=== PATIENT | female | born 1965 | race African-American/Black ===

== ENCOUNTER 2022-08-13 00:55 | Emergency (ER) | payer OTHER, SELFPAY ==
--- NOTE | ~2022-08-13 | CT_ITS ---
EXAMINATION: CT ABDOMEN AND PELVIS WITHOUT CONTRAST CLINICAL INFORMATION: Abdominal pain. Post gastric sleeve surgery. COMPARISON: None available. TECHNIQUE: Multidetector volumetric imaging was performed from the superior aspect of the liver through the pubic symphysis. Sagittal and coronal reformatted images were obtained on the technologist's workstation. This CT examination was performed using dose optimization techniques as appropriate, variously including the following: *Automated exposure control *Adjustment of mA and/or kV according to patient size (this includes techniques or standardized protocols for targeted exams where dose is matched to indication/reason for exam; i.e. extremities or head) *Use of iterative reconstruction technique DLP: 656 mGy-cm FINDINGS: LUNG BASES: The lung bases are clear. The heart size is normal. LIVER, GALLBLADDER, AND BILIARY TREE: The liver is normal in size, shape, and attenuation. There is a 2.4 cm hypodensity along anterior segment right hepatic lobe no additional lesions seen. No intrahepatic ductal dilatation. The gallbladder is unremarkable with no evidence of radiopaque gallstones, gallbladder wall thickening, or obvious pericholecystic inflammatory changes. PANCREAS: Unremarkable. SPLEEN: Unremarkable. ADRENAL GLANDS: Unremarkable. KIDNEYS AND URETERS: The kidneys are normal in size, shape, and attenuation. No hydronephrosis, hydroureter, or calculi seen. No perinephric stranding. A 3 mm hypodensity seen in mid/lower pole cortex left kidney. It is too small to correctly characterize but likely small cysts. BLADDER: Unremarkable. GASTROINTESTINAL TRACT: There is gastric bypass surgery left epigastric region with mild mural thickening distal esophagus or small hiatal hernia. The small bowel loops are normal caliber. Appendix is normal caliber. There is moderate stool and gas in the colon without distention. No free air or free fluid is seen. ABDOMINAL WALL: There are postsurgical changes in the midline mid abdomen. Also visualized is scarring in the right mid abdomen. No evidence of abdominal wall hernia. LYMPH NODES: Normal. VASCULAR: Unremarkable. PELVIC VISCERA: The uterus is enlarged and lobulated form multiple uterine fibroids. The largest right fundal fibroid measures 7.7 x 6.4 x 7.1 cm on axial image 65/3 and sagittal image 81/8 there are additional fibroids noted. There is no free fluid. No abnormal pelvic or inguinal lymph nodes seen. There are surgical gm lower anterior gall from previous intervention. OSSEOUS STRUCTURES: Mild degenerative disc changes L5-S1 disc level. Moderate ventral spondylosis lower dorsal spine. No acute fracture, lytic process seen. CT/CT abdomen pelvis wo IV con IMPRESSION: Enlarged lobulated uterus from multiple uterine fibroids. Correlate with ultrasound. Status post gastric bypass surgery with a dilated and mural thickening of distal esophagus. Hiatal hernia versus esophagitis. Probable tiny cyst left kidney and a small hypodensity in anterior segment right hepatic lobe, question focal fatty infiltration. Fleischner guidelines were followed.
[2022-08-13 00:58] VITALS: BP 200/105; PULSE 71; RESP 16; TEMP 36.5; O2SAT 99; BMI 33.9
[2022-08-13 01:19] VITALS: BP 181/94; PULSE 61; RESP 16; O2SAT 98
--- NOTE | 2022-08-13 01:21 | MHC.EDTECH ---
Patient placed on quality assurance monitor body,UA obtained , and Vitals taken. Call wilde within reach.
[2022-08-13 01:31] LABS: Hematocrit 38.9 % (37.0-47.0); Hemoglobin 12.6 g/dl (12.0-16.0); Mean Corpuscular HGB Conc 32.4 g/dl (31.0-35.0); Mean Corpuscular Hemoglobin 27.5 pg (27.0-33.0); Mean Corpuscular Volume 84.9 fL (80.0-98.0); Mean Platelet Volume 11.4 fL (9.4-12.3); Platelet Count 254 X10*3/uL (160-400); Red Blood Count 4.58 X10*6/uL (4.20-5.50); Red Cell Distribution Width 14.9 % (11.0-16.0); White Blood Count 6.9 X10*3/uL (4.8-10.8)
--- NOTE | 2022-08-13 01:32 | ED_ITS ---
HPI - Abdominal Pain General Chief Complaint: Abdominal Pain Stated Complaint: abd pain Time Seen by Provider: 08/13/22 01:30 Source: patient Mode of arrival: ambulatory Limitations: no limitations History of Present Illness HPI narrative: Patient is status post gastric sleeve surgery in 05/14 had lobster yesterday was doing okay about 4 hours prior to arrival notice epigastric pain followed by nausea and vomited 1 time no diarrhea no fever feels uncomfortable abdominal area patient took Tums and felt slightly better no diarrhea no fever or chills Related Data Previous Rx's Medication Instructions Recorded aluminum-mag hydroxide-simethicone 10 ml PO QID PRN indigestion #355 08/13/22 200 mg-200 mg-20 mg/5 mL oral susp mL (Maalox Advanced) Allergies Allergy/AdvReac Type Severity Reaction Status Date / Time Penicillin Allergy Unknown rash Uncoded 08/13/22 01:04 Review of Systems Review of Systems Yes all other systems are reviewed and are negative [facility] Social History Social History Smoked in Last 30 Days: No Use of substances other than those prescribed or required for medical reasons: No Advance Directives: No Advance Directives Information Provided: No Patient : No Physical Exam ED Vital Signs: Vital Signs - 24 hr 08/13/22 00:58 08/13/22 01:19 08/13/22 02:04 Temperature 97.7 F 97.8 F Pulse Rate 71 61 60 Respiratory Rate 16 16 12 Blood Pressure 200/105 H 181/94 H 150/72 H Pulse Oximetry 99 98 98 Oxygen Delivery Method Room Air Room Air Room Air 08/13/22 05:20 Temperature 97.6 F Pulse Rate 50 Respiratory Rate 11 L Blood Pressure 159/79 H Pulse Oximetry 100 Oxygen Delivery Method Room Air BMI result Body Mass Index 33.9 Appearance: Alert. Oriented X3. No acute distress. ENT: Pharynx normal. Oral Mucosa moist Neck: Normal inspection. Neck supple. CVS: Normal heart rate and rhythm. Pulses normal. Respiratory: No respiratory distress. Equal air entry bilateral, no wheez ing/rales/rhonchi Abdomen: Soft , tenderness in epigastric area no rebound tenderness or guarding. Bowel sounds are present, no mass palpable, no CVA tenderness Skin: Skin warm and dry. Normal skin color. Normal skin turgor. Extremities: No lower extremity edema. No calf tenderness Neuro: Oriented X 3. No motor deficit. Medical Decision Making Medical Decision Making [facility] Narrative: Patient upper abdominal pain after eating seafood with stated gastric sleeve surgery CT scan showed esophagitis/hiatal and level the stable except lipase [address] scan did not show any pancreatic inflammation patient improved after IV fluids will discharge patient home Lab Data [facility] Lab Attestation statement: I reviewed the patient's lab results. 08/13/22 01:08/13/22 01: Labs: Lab Results 08/13/22 08/13/22 08/13/22 Range/Units 01: 01: 01:22 WBC 6.9 (4.8-10.8) X10*3/uL RBC 4.58 (4.20-5.50) X10*6/uL Hgb 12.6 (12.0-16.0) g/dl Hct 38.9 (37.0-47.0) % MCV 84.9 (80.0-98.0) fL MCH 27.5 (27.0-33.0) pg MCHC 32.4 (31.0-35.0) g/dl RDW 14.9 (11.0-16.0) % Plt Count 254 (160-400) X10*3/uL MPV 11.4 (9.4-12.3) fL Absolute Nucleated RBC 0.000 (0.0-0.012) X10*3/uL Nucleated RBC % (auto) 0.0 (0.0-0.2) /100WBC Sodium 140 (135-145) mmol/L Potassium 3.4 (3.3-5.1) mmol/L Chloride 107 (96-108) mmol/L Carbon Dioxide 23 (22-29) mmol/L Anion Gap 13 (12-20) BUN 17 H (9-16) mg/dL Creatinine 0.92 (0.5-1.4) mg/dL Estim Creat Clear Calc 77.5 Estimated GFR > 60 Random Glucose 105 (60-115) mg/dL Calcium 10.0 (8.4-10.2) mg/dL Total Bilirubin 1.6 H (0.0-1.0) mg/dL AST 68 H (5-31) U/L ALT 29 (0-31) U/L Alkaline Phosphatase 145 H (39-117) U/L Total Protein 7.7 (6.5-8.0) g/dL Albumin 4.0 (3.5-5.0) g/dL Lipase 111 H (8-78) U/L Urine Color Yellow Urine Appearance Clear Urine pH 6.5 (5.0-9.0) Ur Specific Bradley 1.020 (1.005-1.025) Urine Protein Negative (Neg-Trace) mg/dL Urine Glucose (UA) Negative (Negative) mg/dL Urine Ketones Trace (Negative) mg/dL Urine Blood Negative (Negative) Urine Nitrite Negative (Negative) Ur Leukocyte Esterase Negative (Negative) Urine RBC 3-5 H (0-2) /HPF Urine WBC 0-5 (0-5) /HPF Ur Squamous Epith Cells 0-2 (0-2) /HPF Urine Bacteria None Seen (None Seen) Hyaline Casts 0-2 (0-2) /LPF Radiology Impression Discussion of test interpretation with radiology: I have reviewed the radiologist's reading. Radiologist Impression: CT/CT abdomen pelvis wo IV con IMPRESSION: Enlarged lobulated uterus from multiple uterine fibroids. Correlate with ultrasound. ? Status post gastric bypass surgery with a dilated and mural thickening of distal esophagus. Hiatal hernia versus esophagitis. ? Probable tiny cyst left kidney and a small hypodensity in anterior segment right hepatic lobe, question focal fatty infiltration. Medications Administered Discontinued Medications Generic Name Dose Route Start Last Admin Trade Name Freq PRN Reason Stop Dose Admin Famotidine 20 mg 08/13/22 04:27 08/13/22 05:13 Famotidine/Pf 20 Mg/2 Ml Vial IVPUSH 08/13/22 04:28 20 mg ONCE ONE Administration Sodium Chloride 1,000 mls @ 999 mls/hr 08/13/22 01:41 08/13/22 05:12 Ns IV 08/13/22 02:41 Infused .Q1H1M ONE Infusion Morphine Sulfate 4 mg 08/13/22 01:41 08/13/22 01:59 Morphine Sulfate 4 Mg/Ml Cartridge IVPUSH 08/13/22 01:42 4 mg ONCE ONE Administration Protocol Ondansetron HCl 4 mg 08/13/22 01:41 08/13/22 01:59 Ondansetron Hcl 4 Mg/2 Ml Vial IVPUSH 08/13/22 01:42 4 mg ONCE ONE Administration Discharge Plan Discharge Clinical Impression: Acute gastritis Patient Disposition: Home, Self-Care Instructions: Gastritis (ED) Additional Instructions: Continue Protonix Take Maalox 10 cc every 4-6 hours as needed Follow-up with your PCP if not better Prescriptions: New alum-mag hydroxide-simeth [Maalox Advanced] 200-200-20 mg/5 mL suspension 10 ml PO QID PRN (Reason: indigestion) Qty: 355 0RF Rx Instructions: administer between meals and at bedtime Stand Alone Forms: Work/School Release Interventions: ED Discharge Assessment Last Done: 08/13/22 05:34 Discharge Date/Time: 08/13/22 05:34
[2022-08-13 01:33] LABS: Appearance Urine Clear; Color Urine Yellow; Glucose Urine UA Negative (Negative); Leukocyte Esterase Urine Negative (Negative); Nitrite Urine Negative (Negative); PH 6.5 (5.0-9.0); Urine Blood Negative (Negative); Urine Ketones Trace mg/dL (Negative); Urine Protein Negative (Neg-Trace)
[2022-08-13 01:37] LABS: Bacteria Urine None Seen (None Seen); Hyaline Casts Urine 0-2 /LPF (0-2); Squamous Epithelial Cell Urine 0-2 /HPF (0-2); WBC Urine 0-5 /HPF (0-5)
[2022-08-13 01:47] LABS: Alanine Aminotransferase 29 U/L (0-31); Alkaline Phosphatase 145 U/L (39-117); Anion Gap 13 (12-20); Aspartate Amino Transferase 68 U/L (5-31); Bilirubin Total 1.6 mg/dL (0.0-1.0); Blood Urea Nitrogen 17 mg/dL (9-16); Carbon Dioxide 23 mmol/L (22-29); Chloride 107 mmol/L (96-108); Creatinine Clr Calc Pharmacy 77.5; Estimated Glomerular Filt Rate > 60; Glucose Random 105 mg/dL (60-115); Lipase 111 U/L (8-78); Potassium 3.4 mmol/L (3.3-5.1); Sodium 140 mmol/L (135-145); Total Protein 7.7 g/dL (6.5-8.0)
[2022-08-13] MEDS: Morphine Sulfate 4 MG/ML CARTRIDGE IVPUSH (01:59)
[2022-08-13] MEDS: ondansetron HCL 4 MG/2 ML VIAL IVPUSH (01:59)
[2022-08-13] MEDS: 0.9 % Sodium Chloride 1,000 ML 999 ML IV (01:59)
--- NOTE | 2022-08-13 02:00 | PC.NURSE ---
late entry-iv placed 20g R Ac. pt medicated according to apr. pt calm and cooperative.
[2022-08-13 02:04] VITALS: BP 150/72; PULSE 60; RESP 12; TEMP 36.6; O2SAT 98
[2022-08-13] MEDS: Famotidine/PF 20 MG/2 ML VIAL IVPUSH (05:13)
[2022-08-13 05:20] VITALS: BP 159/79; PULSE 50; RESP 11; TEMP 36.4; O2SAT 100
--- NOTE | 2022-08-13 05:32 | PC.NURSE ---
pt medicated according to mar prior to discharge. pt ambulatory at discharge. iv removed. pt reports 2/10 pain. pt provided with discharge packet and work note. pt verbalized understanding of discharge plan
== END 2022-08-13 05:34 | disposition home or self-care (01) ==
PROVIDERS: Emergency Provider Internal Medicine; PCP Pediatrics
DX: K29.70 Gastritis, unspecified, without bleeding (principal)
CPT/HCPCS: 36415; 74176; 80053; 81001; 83690; 85027; 96361; 96374; 96375; 99284; J2270; J2405

== ENCOUNTER 2024-10-15 09:03 | Emergency (ER) | payer OTHER, SELFPAY ==
--- OUTSIDE RECORDS SUMMARY | 2024-08-15 14:15 | XMS_ITS | Encounter Summary ---
Author Organization [facility] Address [address] [facility] [address] [place] [address] Phone Care Team Providers Care Dross Puller Name Role Phone Raghavendra Priest MD Primary Care Provider + Encounter Details Date Type Department Care Team (Late st Contact Info) Description 08/15/2024 2:15 PM EDT Hospital Encounter [facility] [address] [place] [id number] Jocelin Arriaga CNP [address] [place] [id number] [email or web address] Social History Tobacco Use Types Packs/Day Years Used Date Smoking Tobacco: Former Cigarettes Q uit: 1994 Passive Smoke Exposure: Past Smokeless Tobacco: Never Comments:Quit 30 yrs ago. Not even a pack in a week Education Answer Date Recorded Are you interested in more education? Not on mono e 08/15/2024 Are you concerned about learning? Not on file 08/15/2024 No 08/15/2024 No 08/15/2024 Digital Access Answer Date Recorded No 08/15/2024 No 08/15/2024 Reliable internet access at home? Not on file 08/15/2024 Device with a working camera? Not on file Comments Unknown Sex and Gender Information Value Date Recorded Sex Assigned at Not on file Legal Sex Female 8:14 AM EDT Gender Identity Not on file Sexual Orientation Not on file documented as of this encounter Plan of Treatment Not on file documented as of this encounter Procedures Procedure Name Priority Date/Time Associated Diagnosis Comments XR ELBOW 3 OR MORE VIEWS (RIGHT) Urgent/patient waiting 08/15/2024 2:22 PM EDT Fall down stairs, initial encounter documented in this encounter Results * XR ELBOW 3 OR MORE VIEWS (RIGHT) (08/15/2024 2:22 PM EDT) Anatomical Region Laterality Modality Elbow Right Computed Radiogr aphy 08/15/2024 2:40 PM EDT Impressions 08/15/2024 2:41 PM EDT No fracture or dislocation. Narrative 08/15/2024 2:41 PM EDT XR ELBOW 3 OR MORE VIEWS (RIGHT) Referring clinician's provided indication for this examination in [facility]: Pain; S/P Fall; fell on right side from 3 stairs, h/o rotator cuff repair X 2 COMPARISON: None FINDINGS: No fracture. Normal alignment. Normal joint spaces. No effusion. No soft tissue swelling. Procedure Note Daniel Soto MBBS - 08/15/2024 XR ELBOW 3 OR MORE VIEWS (RIGHT) Referring clinician's provided indication for this examination in [facility]:Pain; S/P Fall; fell on right side from 3 stairs, h/o rotator cuff repairX 2 COMPARISON: None FINDINGS: No fracture. Normal alignment. Normal joint spaces. No effusion. No softtissue swelling. IMPRESSION: No fracture or dislocation. Jocelin Arriaga COMPLIANCE REVIEW SPECIALIST IMG XR UPPER EXTREMITY Georgette l Result documented in this encounter Visit Diagnoses Not on filedocumented in this encounter Care Teams Dross Puller Relationship Specialty Start Date End Date Raghavendra Priest MD [address] [place] [id number] PCP - General Internal Medicine 08/15/24 documented as of this encounter Additional Source Comments The information contained in this document represents components of the legal health record. It is not the complete legal health record.[facility]
--- OUTSIDE RECORDS SUMMARY | 2024-10-11 08:29 | XMS_ITS | Encounter Summary ---
Author Organization [facility] Address [address] [place] [address] Care Team Providers Care Christmas Tree Grader Name Role Phone Shashank Priest MD Primary Care Provider [phone] Reason for Referral * Imaging (Routine) - Pending Review Specialty Diagnoses / Procedures Referred By Alfonzo orozco Referred To Contact Radiology Diagnoses History of repair of right rotator cuff Traumatic tear of right rotator cuff, unspecified tear extent, initial encounter Procedures MR Shoulder wo Contrast Right Jameson Almendarez PA [address] [address] Phone: tel: fax: [facility] Referral ID Status Reason Start Date Expiration Date V isits Requested Visits Authorized [id number] Pending Review 10/03/2024 10/03/2025 1 1 Reason for Visit * Imaging (Routine) - Pending Review Specialty Diagnoses / Procedures Referred By Alfonzo orozco Referred To Contact Radiology Diagnoses History of repair of right rotator cuff Traumatic tear of right rotator cuff, unspecified tear extent, initial encounter Procedures MR Shoulder wo Contrast Right Jameson Almendarez PA [address] [address] Phone: tel: fax: [facility] Referral ID Status Reason Start Date Expiration Date V isits Requested Visits Authorized [id number] Pending Review 10/03/2024 10/03/2025 1 1 Encounter Details Date Type Department Care Team (Latest Contact Info) Description 10/11/2024 8:29 AM EDT - 10/11/2024 11:59 PM EDT Hospital Encounter [facility] MRI [address] [place] [address] History of repair of right rotator cuff; Traumatic tear of right rotator cuff, unspecified tear extent, initial encounter Discharge Disposition: Home or Self Care Social History Tobacco Use Types Packs/Day Years Used Date Smoking Tobacco: Former Cigarettes Smokeless Tobacco: Never Comments:09/15 Over 39 years age Alcohol Use Standard Drinks/Week Comments Yes 0 (1 standard drink = 0.6 oz pur e alcohol) occasional Comments No Sex and Gender Information Value Date Recorded Sex Assigned at Not on file Legal Sex Female 10:25 AM EDT Gender Identity Not on file Sexual Orientation Not on file documented as of this encounter Medications at Time of Discharge albuterol HFA (PROAIR HFA ; PROVENTIL HFA ; VENTOLIN HFA) 90 mcg/actuation inhaler Inhale 2 puffs by mouth every 6 (six) hours if needed for wheezing. 8.5 g 09/22/2024 calcium carbonate (TUMS) 375 mg (red devil 150mg) tablet ChewTab Take 750 mg by mouth 3 times daily. cholecalciferol (VITAMIN D-3) 1,250 mcg (50,000 unit) capsule Take 1 Capsule by mouth once a week. 05/26/2023 clotrimazole (LOTRIMIN) 1 % cream To affected area 2 times daily until cleares 04/23/2023 cyanocobalamin, vitamin B-12, 1,000 mcg tablet, sublingual Place 1 Tablet under the tongue daily. 05/26/2023 fluvastatin (LESCOL) 20 mg capsuleIndicatio ns:Hypercholeste rolemia Take 1 capsule (20 mg total) by mouth at bedtime. at bedtime 90 capsule 1 09/18/2024 furosemide (LASIX) 20 mg tablet Take 1 tablet (20 mg total) by mouth 2 (two) times a day. 180 each 1 09/18/2024 minoxidiL 5 % foam Apply 5 g topically daily. 04/23/2023 omeprazole (PriLOSEC) [address] capsule Take 1 capsule (20 mg total) by mouth daily. potassium chloride (KLOR-CON M20) 20 mEq CR tablet Take 1 tablet (20 mEq total) by mouth 2 (two) times a day. 180 each 1 09/18/2024 6 traZODone (DESYREL) 50 mg tablet Take 1 tablet (50 mg total) by mouth at bedtime as needed for sleep. 60 tablet 09/18/2024 5 documented as of this encounter Discharge Disposition Disposition Code Departure Means Destination Home or Self Care documented in this encounter Plan of Treatment Upcoming Encounters Date Type Department Care Team (Late st Contact Info) Description 10/26/2024 8:00 AM EDT Office Visit Orthopedic Surgery - [place] [address] [facility] [address] [place] [address] Chidi Black MD [address] [facility] [address] [place] [address] documented as of this encounter Procedures Procedure Name Priority Date/Time Associated Diagnosis Comments MR SHOULDER WO CONTRAST RIGHT Routine 10/11/2024 9:42 AM EDT History of repair of right rotator cuff Traumatic tear of right rotator cuff, unspecified tear extent, initial encounter documented in this encounter Results * MR Shoulder wo Contrast Right (10/11/2024 9:42 AM EDT) Anatomical Region Laterality Modality Upper Extremities, Shoulder Right Magn etic Resonance 10/12/2024 3:48 PM EDT Impressions 10/12/2024 3:59 PM EDT Intrasubstance tear of the posterior supraspinatus, which extends into the conjoined infraspinatus fibers. Diffuse supraspinatus tendinopathy. Degenerative changes of the acromioclavicular and glenohumeral joint. -------- FINAL REPORT -------- Dictated By: Leif Day Dictated Date: 10/12/2024 15:48 ET Assigned Physician: Leif Day Reviewed and Electronically Signed By: Leif Day Signed Date: 10/12/2024 15:59 ET Workstation ID: [id number] Transcribed By: Self Edit Transcribed Date: 10/12/2024 15:48 ET Narrative 10/12/2024 3:59 PM EDT PROCEDURE: MRI of the right shoulder without intravenous contrast. HISTORY: Shoulder pain, rotator cuff disorder suspected, xray done. COMPARISON: None. TECHNIQUE: Multiplanar multisequence MRI of the right shoulder without intravenous contrast administration. FINDINGS: Rotator cuff: Moderate atrophy of the supraspinatus muscle belly. Elongated intramuscular lipoma in the subscapularis muscle belly. There is an intrasubstance tear of the posterior supraspinatus at the musculotendinous junction which extends into the conjoined infraspinatus fibers. Mild diffuse supraspinatus tendinopathy. Biceps: The long biceps tendon is not visualized in the upper bicipital groove and is suspected to be torn. Labrum: Mild circumferential degenerative fraying. Glenohumeral joint: Mild diffuse cartilage thinning and irregularity with small osteophytes. Small subcoracoid joint effusion. Acromioclavicular joint: Moderate degenerative change. Type II acromion. Ligaments: The glenohumeral ligaments appear normal. Other: Susceptibility artifact suggestive of orthopedic hardware in the greater tuberosity of the humerus. Mild scarring and small foci of postsurgical artifact in the overlying soft tissues. Procedure Note Leif Day MD - 10/12/2024 PROCEDURE: MRI of the right shoulder without intravenous contrast. HISTORY: Shoulder pain, rotator cuff disorder suspected, xray done. COMPARISON: None. TECHNIQUE: Multiplanar multisequence MRI of the right shoulder withoutintravenous contrast administration. FINDINGS: Rotator cuff: Moderate atrophy of the supraspinatus muscle belly.Elongated intramuscular lipoma in the subscapularis muscle belly. Thereis an intrasubstance tear of the posterior supraspinatus at themusculotendinous junction which extends into the conjoined infraspinatusfibers. Mild diffuse supraspinatus tendinopathy. Biceps: The long biceps tendon is not visualized in the upper bicipitalgroove and is suspected to be torn. Labrum: Mild circumferential degenerative fraying. Glenohumeral joint: Mild diffuse cartilage thinning and irregularity withsmall osteophytes. Small subcoracoid joint effusion. Acromioclavicular joint: Moderate degenerative change. Type IIacromion. Ligaments: The glenohumeral ligaments appear normal. Other: Susceptibility artifact suggestive of orthopedic hardware in thegreater tuberosity of the humerus. Mild scarring and small foci ofpostsurgical artifact in the overlying soft tissues. IMPRESSION: Intrasubstance tear of the posterior supraspinatus, which extends into theconjoined infraspinatus fibers. Diffuse supraspinatus tendinopathy. Degenerative changes of the acromioclavicular and glenohumeral joint. -------- FINAL REPORT -------- Dictated By: Leif Day Dictated Date: 10/12/2024 15:48 ET Assigned Physician: Leif Day Reviewed and Electronically Signed By: Leif Day Signed Date: 10/12/2024 15:59 ET Workstation ID: [id number] Transcribed By: Self Edit Transcribed Date: 10/12/2024 15:48 ET [facility] MRI PROCEDURES Final Result documented in this encounter Visit Diagnoses Diagnosis History of repair of right rotator cuff Traumatic tear of right rotator cuff, unspecified tear extent, initial encounter documented in this encounter Care Teams Christmas Tree Grader Relationship Specialty Start Date End Date Shashank Priest MD [address] [place] [id number] PCP - General Internal Medicine 05/08/13 documented as of this encounter
[2024-10-15] VITALS (12 sets, daily range): BP systolic 149–197; BP diastolic 63–98; PULSE 42–63; RESP 13–18; TEMP 36.4–36.7; O2SAT 97–99; BMI 31.4
--- NOTE | ~2024-10-15 | CT_ITS ---
CLINICAL HISTORY: severe lower abdpain CT abdomen and pelvis with contrast Comparison: CT/SR - CT ABDOMEN PELVIS WITHOUT IV CONTRAST - 08/13/22 01:48 EDT Findings: No consolidation or effusion. Gallbladder is unremarkable. The spleen, adrenal glands, pancreas and kidneys are unremarkable. There is a 2.5 cm liver lesion with some peripheral enhancement consistent with a hemangioma in the inferior right lobe of the liver. This lesion was present on prior study. No bowel obstruction, pneumoperitoneum, or pneumatosis. There is a small hiatal hernia. 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 In the right lower quadrant, in the retroperitoneum there is a fluid attenuation ovoid mass measuring 4.0 x 3.0, adjacent to the gonadal vessels. This lesion previously measured 3.6 x 2.0 cm and appears increased in size. Internal Hounsfield units measure 4. Multiple surgical clips in the anterior abdominal wall inferiorly. Uterus is enlarged and there are multiple lobular masses throughout the uterus, largest at the right fundus measuring 7.9 cm in diameter. Normal appendix. Trace free fluid in the right lower quadrant. No acute fracture. IMPRESSION: 1. Markedly enlarged uterus with multiple internal masses suspect to be uterine fibroids. Appearance is similar in comparison to prior. 2. Right retroperitoneal fluid attenuation ovoid structure adjacent to the gonadal vessels measuring 4.0 x 3.0, increased in size from prior. This may represent a lymphocele or seroma. No enhancement to suggest superinfection. 3. 2.5 cm hemangioma in the inferior right lobe of the liver. This document has been electronically signed by: Chato Todd MD on 10/15/2024 12:28:36
--- NOTE | ~2024-10-15 | US_ITS ---
CLINICAL HISTORY: severe lower abd pain r o torsion US female pelvis LMP:Postmenopausal. Technique: Ultrasound examination of the pelvis was performed with transabdominal and transvaginal technique. Comparison: CT/REG/SR - CT ABDOMEN PELVIS W IV CON - 10/15/24 11:[address] - CT ABDOMEN PELVIS W IV CON - 10/15/24 11:29 EDT Findings: Anteverted uterus measuring 16.2 x 5.8 x 7.8cm with multiple fibroids. There is an intramural fibroid in the right uterine body measuring 3.0 x 3.5 x 3.4 cm. There is an intramural fibroid in the left uterine body measuring 2.8 x 2.4 x 2.6 cm. There is a fibroid at the left lower uterine segment which is likely intramural with protrusion into the subserosal on submucosal spaces measuring 4.2 x 3.9 x 4.2 cm. Normal endometrial thickness of 0.5cm. The ovaries were not visualized. No lesions in the adnexa. No identified free fluid. Impression: Fibroid uterus. The ovaries were not visualized. Fluid in the right adnexa seen on CT is not well seen on ultrasound. This document has been electronically signed by: Eulalia Clements MD on 10/15/2024 17:03:11
[2024-10-15 09:20] LABS: MANUAL DIFF FLAG NO
[2024-10-15 09:23] LABS: Hematocrit 38.4 % (37.0-47.0); Hemoglobin 13.0 g/dl (12.0-16.0); Imm Gran Abs Auto 0.01 X10*3/uL (0.00-0.03); Imm Gran Pct Auto 0.2 % (0.0-0.4); Lymphocytes Absolute Auto 2.6 X10*3/uL (1.2-4.9); Mean Corpuscular HGB Conc 33.9 g/dl (31.0-35.0); Mean Corpuscular Hemoglobin 29.7 pg (27.0-33.0); Mean Corpuscular Volume 87.9 fL (80.0-98.0); NRBC Abs Auto 0.000 X10*3/uL (0.0-0.012); NRBC Pct Auto 0.0 /100WBC (0.0-0.2); Platelet Count 205 X10*3/uL (160-400); Red Blood Count 4.37 X10*6/uL (4.20-5.50); White Blood Count 6.6 X10*3/uL (4.8-10.8)
--- NOTE | 2024-10-15 09:33 | ECG_ITS ---
Test Reason : ABD PAIN Blood Pressure : */* mmHG Vent. Rate : 54 BPM Atrial Rate : 54 BPM P-R Int : 158 ms QRS Dur : 80 ms QT Int : 438 ms P-R-T Axes : 43 -13 16 degrees QTcB Int : 415 ms Sinus bradycardia Minimal voltage criteria for LVH, may be normal variant ( R in aVL ) Borderline ECG When compared with ECG of 01-Apr-2019 10:08, No significant change was found Referred By: Ghassan Cameron Electronically Signed By: GERSON VAZQUEZ
[2024-10-15 09:37] LABS: Alanine Aminotransferase 21 U/L (0-31); Albumin Level 4.0 g/dL (3.5-5.0); Alkaline Phosphatase 180 U/L (39-117); Anion Gap 13 (12-20); Aspartate Amino Transferase 15 U/L (5-31); Blood Urea Nitrogen 10 mg/dL (9-16); Calcium 9.5 mg/dL (8.4-10.2); Carbon Dioxide 26 mmol/L (22-29); Chloride 108 mmol/L (96-108); Creatinine Clr Calc Pharmacy 72.0; Estimated Glomerular Filt Rate > 60; Potassium 3.7 mmol/L (3.3-5.1); Sodium 143 mmol/L (135-145); Total Protein 6.8 g/dL (6.5-8.0)
--- OUTSIDE RECORDS SUMMARY | 2024-10-15 09:48 | XMS_ITS | Clinical Summary ---
Author Organization [facility] Address [address] [place] [address] Care Team Providers Care Heading Pinner Name Role Phone Raghavendra Priest MD Primary Care Provider + [phone] Allergies Active Allergy Reactions Criticality Noted Date Comments Peanuts 11/20/2021 Penicillins 11/20/2021 Medications Medication Sig Dispensed Refills Start Date End Date Status potassium chloride ER (K-DUR,KLOR-CON) tablet 20 mEq Take 1 tablet (20 mEq total) by mouth 2 (two) times a day. 0 Active omeprazole (PriLOSEC) 20 MG capsule Take 1 capsule (20 mg total) by mouth daily. 0 Active docusate sodium (COLACE) 100 MG capsule Take 1 capsule (100 mg total) by mouth 2 (two) times a day. 0 Active Cholecalciferol (Vitamin D3) 1.25 MG (88082 UT) TABS Take by mouth once a week. 0 Active furosemide (LASIX) 20 MG tablet Take 1 tablet (20 mg total) by mouth 2 (two) times a day. 0 Active fluvastatin (LESCOL) 20 MG capsule Take 10 mg by mouth every night at bedtime. 0 Active Urea (URESOL EX) Apply topically. 100mg 0 Active Multiple Vitamins-Minerals (Bariatric Multivitamins/Iron) CAPS Take by mouth. 0 Active polyethylene glycol (MIRALAX) 17 g packet Take 17 g by mouth daily. 0 Active ezetimibe (ZETIA) tablet 10 mg Take 1 tablet (10 mg total) by mouth daily. 0 Active thiamine mononitrate (VITAMIN B-1) 100 MG tablet Take 1 tablet (100 mg total) by mouth daily. 0 Active Cyanocobalamin (VITAMIN B12 PO) Take by mouth. 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 Sex and Gender Information Value Date Recorded Sex Assigned at Female 12/17/2021 1:59 PM EDT Gender Identity Not on file Sexual Orientation Not on file Job Start Date Occupation Industry Not on file Not on file Not on file Last Filed Vital Signs Vital Sign Reading Time Taken Comments Blood Pressure 110/71 06/25/2023 3:15 PM EDT Pulse 59 06/25/2023 3:15 PM EDT Temperature 36.6 C (97.9 F) 06/25/2023 3:15 PM EDT Respiratory Rate 18 06/25/2023 3:15 PM EDT Oxygen Saturation 100% 06/25/2023 3:15 PM EDT Inhaled Oxygen Concentration - - Weight 82.6 kg (182 lb) 05/18/2023 10:23 AM EDT Height 167.6 cm (5' 6 ) 05/18/2023 10:23 AM EDT Body Mass Index 29.38 05/18/2023 10:23 AM EDT Plan of Treatment Health Maintenance Due Date Last Done Comments Hepatitis C Screening 1965 COVID-19 Vaccine (#1) 1965 Depression Screening 1976 BMI Counseling 01/03/1982 Preventative Health Evaluation 01/03/1982 Cervical Cancer Screening (Pap Smear) 01/03/1985 Colon Cancer Screening (Colonoscopy) 01/03/2009 Breast Cancer Screening (Mammogram) 01/03/2014 Shingrix-Zoster Vaccine (1 o f 2) 01/03/2014 DTap / Tdap / Td (2 - Td or Tdap) 11/09/2023 11/08/2013 Influenza Vaccine (#1) 2024 0, 12/14/2018 RSV Adult > 60+ Yrs or (1 - 1-dose 75+ series) 01/03/2039 Hepatitis B Vaccines Aged Out No long er eligible based on patient's age to complete this topic Pneumococcal Vaccine Aged Out No long er eligible based on patient's age to complete this topic RSV Ped < 20 months Aged Out No longe r eligible based on patient's age to complete this topic Care Teams Heading Pinner Relationship Specialty Start Date End Date Raghavendra Priest MD PCP - General Production Lead 10/10/21
--- OUTSIDE RECORDS SUMMARY | 2024-10-15 09:48 | XMS_ITS ---
Author Name [facility] Organization Unknown Care Team Organization Name Specialty Phone Email Start Date End Da te [facility] Raghavendra Dennis [facility] 12/30/2021 10/11/2023
--- OUTSIDE RECORDS SUMMARY | 2024-10-15 09:48 | XMS_ITS | Patient Health Record ---
Author Organization [facility] Address [address] [address] Support Name Relationship Address Phone NURSE JENY MENDOSA Guarantor Unknown Reason For Referral No Information Medications Medication SIG (Take, Route, Fr equency, Duration) Notes Start Date End Date Status Albuterol 90 MCG 2 Inhalation q6h; Du ration: 30 Mike-MJ 02/18/2011 Active Tessalon Perles 100MG 1 ORAL three times daily; Duration: 10 Mike-MJ 02/18/2011 Active Zithromax 250MG ORAL; Duration: 5 Mike-MJ 02/18/2011 Active Problems Problem Type SNOMED Code ICD Code Onset Dates Problem Status W/U Status Risk Notes Problem Acute bronchitis (28803238) Acute bronchitis (466.0) Active confirmed Diag Plan Of Treatment No Information
[2024-10-15 10:13] LABS: Troponin-I High Sensitivity 2.7 ng/L (<3.5-17.0)
--- NOTE | 2024-10-15 10:24 | ED_ITS ---
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 Reports diffuse lower abd pain and tells me it started on the left lower now she feels it throughout her entire lower abdomen. Reports she was vomiting bile a few days ago. She reports she is very uncomfortable. Eating and drinking. No sick contacts w/ similar sx. Denies fevers, chills, cp, sob, dizziness, weakness, n/v Related Data Previous Rx's ?Medication ?Instructions ?Recorded aluminum-mag hydroxide-simethicone 10 ml PO QID PRN in digestion #355 08/13/22 200 mg-200 mg-20 mg/5 mL oral susp mL (Maalox Advanced) ketorolac 10 mg tablet 10 mg PO BID PRN pain 10 day s #20 10/15/24 tabs ondansetron 4 mg disintegrating 4 mg PO Q6H PRN nausea and 10/15/24 tablet vomiting #14 tabs Allergies Allergy/AdvReac Type Severity Reaction Status Date / Time Penicillin Allergy Intermediate rash Uncoded 10/15/24 09:09 Review of Systems 2 Review of Systems: Yes all other systems are reviewed and are negative [facility] Past Medical History Attestation statement: The following information was validated with the patient. Source: old records reviewed and nursing notes reviewed Social History Social History Advance Directives: No Advance Directives Information Provided: No Do you have a plan to hurt others: No Plan Patient : No Physical Exam ED Exam Exam: Appearance: Alert.? Oriented X3.? No acute distress.? Head: Normocephalic, atraumatic, no step-offs or deformities Eyes: Pupils equal, round and reactive to light.? ENT: Pharynx normal.? Neck: Normal inspection.? Neck supple.? CVS: Normal heart rate and rhythm.? Pulses normal.? Respiratory: No respiratory distress.? Breath sounds normal.? Abdomen: Soft and + significant tenderness throughout entire abdomen.? Skin: Skin warm and dry.? Normal skin color.? Normal skin turgor.? Extremities: No lower extremity edema.? No calf ttp. 5/5 strength to bilateral upper and lower extremities Neuro: Oriented X 3.? No motor deficit.? No sensory deficit. CN 2-12 intact Vital Signs: Vital Signs - 24 hr 10/15/24 09:07 10/15/24 10:15 10/15/24 11:16 Temperature 97.6 F Pulse Rate 63 50 Respiratory Rate 18 18 16 Blood Pressure 197/98 H 149/63 H Pulse Oximetry 98 98 Oxygen Delivery Method Room Air Room Air 10/15/24 11:20 10/15/24 12:32 10/15/24 14:28 Temperature Pulse Rate 48 L 45 L 42 L Respiratory Rate 18 18 16 Blood Pressure 155/87 H 170/89 H 154/67 H Pulse Oximetry 99 98 98 Oxygen Delivery Method Room Air Room Air Room Air 10/15/24 15:43 10/15/24 16:20 Temperature Pulse Rate 45 L 45 L Respiratory Rate 16 13 Blood Pressure 153/89 H 168/84 H Pulse Oximetry 99 97 Oxygen Delivery Method Room Air Room Air BMI result Body Mass Index 31.4 vss Course Reevaluation(s) Reevaluation #1: CBC with no acute findings needing intervention. Chemistry no acute findings. UA unremarkable CT abdomen pelvis pending Time: 12:22 Reevaluation #2: CT abdomen and pelvis with markedly enlarged uterus multiple internal masses suspected to be uterine fibroids appearance similar in comparison to prior. Right retroperitoneal fluid attenuation ovoid structure adjacent to the gonadal vessels measuring 4 x 3, increased in size from prior this may represent a lymphocele or seroma. No enhancement to suggest superinfection there is also a 2.5 cm hemangioma in the inferior right lobe of the liver Ultrasound has been ordered in his pending. Time: 12:30 Reevaluation #3: Patient is still in mild discomfort Toradol was ordered Time: 15:34 Additional Reevaluation(s): 1548 There is a delay throughout the emergency department if reads an ultrasounds. Patient is still waiting. Nursing has explained this to patient and so if I. 1708 Patient's ultrasound with fluid in the right adnexa seen on CT however not well visualized. The ovaries were not visualized. Fibroid uterus. 1717 Discuss results with patient she is noted to be bradycardic on the monitor she denies headache, vision changes, dizziness, chest pain, shortness of breath. I will obtain orthostatic vital signs. Her EKG shows sinus bradycardia no signs of heart block or ischemia. Troponin was negative. No indication for 2nd troponin. Medications Administered Discontinued Medications Generic Name Dose Route Start Last Admin Trade Name Jameson PRN Reason Stop Dose Admin Iohexol 100 ml 10/15/24 11:46 10/15/24 11:46 Iohexol 350 Mg/Ml 100 Ml Infus..Btl IV 10/15/24 11:47 85 ml ONCE ONE Administration Ketorolac Tromethamine 30 mg 10/15/24 15:34 10/15/24 15:39 Ketorolac Tromethamine 15 Mg/Ml Vial IVPUSH 10/15/24 15:35 30 mg ONCE ONE Administration Morphine Sulfate 4 mg 10/15/24 10:47 10/15/24 11:16 Morphine Sulfate 4 Mg/Ml Cartridge IVPUSH 10/15/24 10:48 4 mg ONCE ONE Administration Protocol Ondansetron HCl 4 mg 10/15/24 10:47 10/15/24 11:16 Ondansetron Hcl 4 Mg/2 Ml Vial IVPUSH 10/15/24 10:48 4 mg ONCE ONE Administration Medical Decision Making Medical Decision Making [facility] Narrative: 1028 59 year old female presents w/ severe abd pain and nausea/vomiting PE diffused abd pain one exam Hx and pe concerning for possible intra abdominal issue, diverticulitis vs pancreatitis vs appendicitis. Less likely cholecystits. I do not suspect metabolic derangements or acute abdomen. Unlikely AAA or dissection Plan- labs, urine, imaging Differential Diagnosis Differential Diagnoses: The differential diagnosis associated with the presentation includes (Hx and pe concerning for possible intra abdominal issue, diverticulitis vs pancreatitis vs appendicitis. Less likely cholecystits. I do not suspect metabolic derangements or acute abdomen. Unlikely AAA or dissection ) Admission/Observation Consideration of admission/observation: Escalation of care including admission/observation considered Lab Data [facility] Lab Attestation statement: I reviewed the patient's lab results. 10/15/24 09:14 10/15/24 09:14 Labs: Lab Results 10/15/24 10/15/24 Range/Units 09:14 10:31 WBC 6.6 (4.8-10.8) X10*3/uL RBC 4.37 (4.20-5.50) X10*6/uL Hgb 13.0 (12.0-16.0) g/dl Hct 38.4 (37.0-47.0) % MCV 87.9 (80.0-98.0) fL MCH 29.7 (27.0-33.0) pg MCHC 33.9 (31.0-35.0) g/dl RDW 13.2 (11.0-16.0) % Plt Count 205 (160-400) X10*3/uL MPV 11.0 (9.4-12.3) fL Immature Gran % (Auto) 0.2 (0.0-0.4) % Neut % (Auto) 52.9 (45-73) % Lymph % (Auto) 39.8 (20-40) % [place] % (Auto) 5.6 (2-11) % Eos % (Auto) 1.2 (0-4) % Baso % (Auto) 0.3 (0-2) % Lymph # (Auto) 2.6 (1.2-4.9) X10*3/uL [place] # (Auto) 0.4 (0.1-1.2) X10*3/uL Eos # (Auto) 0.1 (0.0-0.4) X10*3/uL Baso # (Auto) 0.0 (0.0-0.2) X10*3/uL Abs Immat Gran (auto) 0.01 (0.00-0.03) X10*3/uL Absolute Neuts (auto) 3.5 (2.0-8.3) x10*3/uL Absolute Nucleated RBC 0.000 (0.0-0.012) X10*3/uL Nucleated RBC % (auto) 0.0 (0.0-0.2) /100WBC Sodium 143 (135-145) mmol/L Potassium 3.7 (3.3-5.1) mmol/L Chloride 108 (96-108) mmol/L Carbon Dioxide 26 (22-29) mmol/L Anion Gap 13 (12-20) BUN 10 (9-16) mg/dL Creatinine 0.93 (0.5-1.4) mg/dL Estim Creat Clear Calc 72.0 Estimated GFR > 60 Random Glucose 72 (60-115) mg/dL Calcium 9.5 (8.4-10.2) mg/dL Total Bilirubin 0.9 (0.0-1.0) mg/dL AST 15 (5-31) U/L ALT 21 (0-31) U/L Alkaline Phosphatase 180 H (39-117) U/L Troponin I High Sens 2.7 (<3.5-17.0) ng/L Total Protein 6.8 (6.5-8.0) g/dL Albumin 4.0 (3.5-5.0) g/dL Urine Color Yellow Urine Appearance Clear Urine pH 6.5 (5.0-9.0) Ur Specific [place] 1.015 (1.005-1.025) Urine Protein Negative (Neg-Trace) mg/dL Urine Glucose (UA) Negative (Negative) mg/dL Urine Ketones Negative (Negative) mg/dL Urine Blood Negative (Negative) Urine Nitrite Negative (Negative) Ur Leukocyte Esterase Negative (Negative) Independent Interpretation I performed an independent interpretation of an: EKG (Sinus bradycardia Minimal voltage criteria for LVH, may be normal variant ( R in aVL ) Borderline ECG When compared with ECG of 01-Apr-2019 10:08, No significant change was found), Ultrasound (Impression: Fibroid uterus. The ovaries were not visualized. Fluid in the right adnexa seen on CT is not well seen on ultrasound.) and CT Scan (IMPRESSION: 1. Markedly enlarged uterus with multiple internal masses suspect to be uterine fibroids. Appearance is similar in comparison to prior. 2. Right retroperitoneal fluid attenuation ovoid structure adjacent to the gonadal vessels measuring 4.0 x 3.0, increased in size from prior. This ma) Radiology Impression Discussion of test interpretation with radiology: I have reviewed the radiologist's reading. Prescription Management I considered prescription management with: Pain Medication (Toradol) Critical Care Time Critical Care Time Critical Care Time: Yes Total Critical Care Time: 35 Attestation: I attest to this time spent taking care of the patient, obtaining history, physical, reviewing labs, imaging, treatment of patients condition +/- specialist/hospitalist consult +/- procedure Discharge Plan Discharge Clinical Impression: Abdominal pain, Nausea & vomiting Patient Disposition: Home, Self-Care Instructions: Acute Nausea and Vomiting (DC), Abdominal Pain (ED) Additional Instructions: Take your medications as prescribed. If you were prescribed antibiotics today, it is important that you take your medication to their entirety, do not skip any doses, do not finish them early. Follow-up with your primary care provider this week. Return to the emergency department with new or worsening symptoms. Such as fevers, chills, chest pain, shortness of breath, nausea, vomiting, dizziness, headache, vision changes, lethargy In case of emergency call 911 You should follow-up with your OBGYN provider within the next few datys ( 1-3 days) You were also noted to have bradycardia or slow heart rate in the emergency department this should not be an issue unless you experience symptoms such as chest pain, shortness of breath, dizziness, weakness, visual changes. Please follow-up with your PCP and inform them of this finding you may need to see cardiology at some point Nita has been sent for nausea and vomiting. CT abdomen and pelvis with contrast IMPRESSION: 1. Markedly enlarged uterus with multiple internal masses suspect to be uterine fibroids. Appearance is similar in comparison to prior. 2. Right retroperitoneal fluid attenuation ovoid structure adjacent to the gonadal vessels measuring 4.0 x 3.0, increased in size from prior. This may represent a lymphocele or seroma. No enhancement to suggest superinfection. 3. 2.5 cm hemangioma in the inferior right lobe of the liver. US female pelvis LMP:Postmenopausal. Technique: Ultrasound examination of the pelvis was performed with transabdominal and transvaginal technique. Comparison: CT/REG/SR - CT ABDOMEN PELVIS W IV CON - 10/15/24 11:[address] - CT ABDOMEN PELVIS W IV CON - 10/15/24 11:29 EDT Findings: Anteverted uterus measuring 16.2 x 5.8 x 7.8cm with multiple fibroids. There is an intramural fibroid in the right uterine body measuring 3.0 x 3.5 x 3.4 cm. There is an intramural fibroid in the left uterine body measuring 2.8 x 2.4 x 2.6 cm. There is a fibroid at the left lower uterine segment which is likely intramural with protrusion into the subserosal on submucosal spaces measuring 4.2 x 3.9 x 4.2 cm. Normal endometrial thickness of 0.5cm. The ovaries were not visualized. No lesions in the adnexa. No identified free fluid. Impression: Fibroid uterus. The ovaries were not visualized. Fluid in the right adnexa seen on CT is not well seen on ultrasound. Prescriptions: New ketorolac 10 mg tablet 10 mg PO BID PRN (Reason: pain) 10 Days Qty: 20 0RF Rx Instructions: Tolerated IM or IV in department ondansetron 4 mg tablet,disintegrating 4 mg PO Q6H PRN (Reason: nausea and vomiting) Qty: 14 0RF No Action alum-mag hydroxide-simeth [Maalox Advanced] 200-200-20 mg/5 mL suspension 10 ml PO QID PRN (Reason: indigestion) Qty: 355 0RF Rx Instructions: administer between meals and at bedtime Referrals: Raghavendra Priest MD [Primary Care Provider, Medical] Stand Alone Forms: Work/School Release Print Language: Colombian
[2024-10-15 10:48] LABS: Appearance Urine Clear; Glucose Urine UA Negative (Negative); PH 6.5 (5.0-9.0); Specific Gravity - Urine 1.015 (1.005-1.025)
[2024-10-15] MEDS: iohexoL 350 MG/ML 100 ML INFUS..BTL IV (11:46)
--- NOTE | 2024-10-15 14:37 | PC.NURSE ---
Pt's HR is in low 40s at rest. Asymptomatic. Denies beta blockers. All other VSS. Notified provider.
== END 2024-10-15 17:40 | disposition home or self-care (01) ==
PROVIDERS: Emergency Provider Emergency Medicine; PCP Pediatrics
DX: R10.32 Left lower quadrant pain (principal); Z98.84 Bariatric surgery status; R11.2 Nausea with vomiting, unspecified
CPT/HCPCS: 36415; 74177; 76830; 76856; 80053; 81003; 84484; 85025; 93005; 93975; 96374; 96375; 99285; J1885; J2270; J2405; Q9967

== ENCOUNTER → 2024-10-15 09:33 | Outpatient (BNV) | payer OTHER, SELFPAY | PROVIDERS: Emergency Provider Emergency Medicine; PCP Pediatrics; Visit Provider Internal Medicine | DX: R00.1 Bradycardia, unspecified (principal) | CPT/HCPCS: 93010 ==

== ENCOUNTER → 2024-10-15 11:00 | Outpatient (BNV) | payer OTHER, SELFPAY | PROVIDERS: Emergency Provider Emergency Medicine; PCP Pediatrics; Visit Provider Radiology Diagnostic Radiology | DX: R10.30 Lower abdominal pain, unspecified (principal); N85.2 Hypertrophy of uterus; D18.09 Hemangioma of other sites; D25.9 Leiomyoma of uterus, unspecified | CPT/HCPCS: 74177; 93975 ==